=== PATIENT | female | born 1995 | race Caucasian/White ===

== ENCOUNTER 2017-02-08 03:03 | Emergency (ER) | payer SELFPAY ==
[~2017-02-08] VITALS: Ht 160 cm; Wt 68.0 kg
[2017-02-08 03:10] VITALS: BP 128/80
--- NOTE | 2017-02-08 03:17 | NUR ---
PT TAKEN TO BED 4
--- NOTE | 2017-02-08 03:21 | NUR ---
Dr. Garza evaluating patient at bedside.
[2017-02-08] MEDS ORDERED: TETRACAINE 0.5% OPTH SOL 2 ML BTL ONE (03:24)
[2017-02-08] MEDS ORDERED: FLUORESCEIN OPTH STRIP 1 MG ONE (03:24)
[2017-02-08] MEDS ORDERED: GENTAMICIN OP 0.3% 10.5 MG/3.5 GM TUBE OP ONE (03:25)
[2017-02-08] MEDS ORDERED: TETRACAINE 0.5% OPTH SOL 2 ML BTL OP ONE (03:25)
[2017-02-08] MEDS ORDERED: FLUORESCEIN OPTH STRIP 1 MG OP ONE (03:25)
[2017-02-08] MEDS ORDERED: GENTAMICIN OP 0.3% 10.5 MG/3.5 GM TUBE ONE (03:30)
--- NOTE | 2017-02-08 03:31 | NUR ---
21 Y/O F W/C/O RIGHT EYE RED, IRRITATED, TEARING, PT STATES FEELS LIKE SOMETHING IS IN SIDE HER R EYE. NO S/S OF DISTRESS NOTED. ER AT [facility].
[2017-02-08 03:51] VITALS: BP 128/80
--- NOTE | 2017-02-08 03:51 | NUR ---
Patient discharged BY DR PINEDA with v/s stable. Written and verbal after care instructions given and explained BY ER MD. Patient alert, oriented and verbalized understanding of instructions. Ambulatory with steady gait. All questions addressed prior to discharge. ID band removed. Patient advised to follow up TO THIS ER TODAY AFTER 1999. Rx of NAPROSYN given. Patient educated on indication of medication including possible reaction and side effects. Opportunity to ask questions provided and answered.
== END 2017-02-08 03:51 | disposition home or self-care (01) ==
LOC: MED 03:03
DX: S05.01XA Injury of conjunctiva and corneal abrasion without foreign body, right eye, initial encounter (principal); X58.XXXA Exposure to other specified factors, initial encounter; Y93.89 Activity, other specified; Y92.89 Other specified places as the place of occurrence of the external cause; Y99.8 Other external cause status
CPT/HCPCS: 99284

== ENCOUNTER 2017-02-08 13:32 | Emergency (ER) | payer SELFPAY ==
[~2017-02-08] VITALS: Ht 162.6 cm; Wt 68.0 kg
[2017-02-08 13:43] VITALS: BP 150/100
--- NOTE | 2017-02-08 15:55 | NUR ---
PATIENT LEFT WITHOUT BEING SEEN BY DR. KIM. NO FURTHER CARE PROVIDED FOR PATIENT.
== END 2017-02-08 15:55 | disposition left against medical advice (07) ==
LOC: MED 13:32
DX: H57.11 Ocular pain, right eye (principal); Z53.21 Procedure and treatment not carried out due to patient leaving prior to being seen by health care provider

== ENCOUNTER 2018-09-20 14:17 | Emergency (ER) | payer MEDICAID ==
[~2018-09-20] VITALS: Ht 165.1 cm; Wt 81.6 kg
[2018-09-20 14:40] VITALS: BP 118/75
[2018-09-20 15:16] LABS: APPEARANCE,URINE CLEAR (CLEAR); BILIRUBIN,URINE NEGATIVE (NEGATIVE); BLOOD, URINE NEGATIVE (NEGATIVE); COLOR,URINE YELLOW (YELLOW); LEUKOCYTE ESTERASE ,URINE NEGATIVE (NEGATIVE); NITRITE, URINE NEGATIVE (NEGATIVE); PH,URINE 7.5 (5.0-9.0); UGLUCOSE NEGATIVE (NEGATIVE)
[2018-09-20 15:16] LABS: BASOPHILS % (AUTO) 0.5 % (0.0-2.0); EOSINOPHILS # (AUTO) 0.2 K/uL (0-0.4); HEMOGLOBIN 13.7 g/dL (12.0-16.0); LYMPHOCYTES # (AUTO) 2.8 K/uL (2.5-16.5); MEAN CORPUSCULAR HEMOGLOBIN 31 pg (27-31); MEAN CORPUSCULAR HGB CONC 34 g/dL (33-37); MEAN CORPUSCULAR VOLUME 90.6 fL (80-94); MONOCYTES # (AUTO) 0.8 K/uL (0.8-1.0); NEUTROPHILS # (AUTO) 5.9 K/uL (1.8-7.7); NEUTROPHILS % (AUTO) 60.5 % (42.2-75.2); PLATELET COUNT (AUTO) 250 K/uL (140-450); RED BLOOD CELL COUNT(AUTO) 4.42 MIL/uL (4.20-5.40); RED CELL DISTRIBUTION WIDTH 12.6 % (11.6-13.7); WHITE BLOOD COUNT (AUTO) 9.8 K/uL (4.8-10.8)
[2018-09-20 17:24] VITALS: BP 117/70
== END 2018-09-20 17:25 | disposition home or self-care (01) ==
LOC: MED 14:17
DX: O20.0 Threatened abortion (principal); Z3A.08 8 weeks gestation of pregnancy
CPT/HCPCS: 36415; 76817; 81003; 84702; 85025; 86900; 86901; 99284; Q0092